=== PATIENT | female | born 1940 | race Caucasian/White ===

== ENCOUNTER 2023-07-08 11:12 | Inpatient (IN) ==
[2023-07-08] MEDS: OPTIRAY 320 125ml IV ONE (11:19)
--- NOTE | 2023-07-08 11:33 | Emergency Department Note ---
Impression & Plan Stroke-like symptoms ED Provider Note ED Provider Note NAME: NEGRITA GEE AGE:82 SEX: Female : 1940 ARRIVES VIA: EMS INFORMANT: Patient ED PROVIDER(s): Elisha Joseph DO CHIEF COMPLAINT: Right leg weakness HPI: This is an 82-year-old female brought in by EMS due to concern for sudden onset of right leg weakness. Patient made a stroke alert prehospital and taken urgently for CT imaging. Upon patient's arrival into the room, she stated she began developing lightheadedness/dizziness at 945 this morning about the time her daughter arrived. She states she then began to feel a sense of numbness in her right lower extremity and then realized that the leg was weak when she tried to stand up. She states she had to physically move the leg and felt she was falling to the right when she tried to stand on it. No prior similar episodes. No recent falls or trauma. Patient denies any difficulty speaking, change in vision, or headaches. She states the leg does feel improved at this time although not totally resolved. She states she is able to move it somewhat at this time. She states the right lower extremity feels heavy as if there is a weight on it. PAST MEDICAL HISTORY:See Below PAST SURGICAL HISTORY:See Below FAMILY HISTORY:See Below SOCIAL HISTORY:See Below HOME MEDICATIONS:See Below ALLERGIES:See Below VITALS:See Below PHYSICAL EXAMINATION: GENERAL: alert, well appearing, well nourished, no distress, non-toxic EYE EXAM: normal conjunctiva, PERRL and EOM's grossly intact OROPHARYNX: no exudate, no erythema, lips, buccal mucosa, and tongue normal and mucous membranes are moist NECK: supple, no nuchal rigidity, no adenopathy, non-tender LUNGS: Clear to auscultation. Normal chest wall mechanics, no w/r/r HEART: no murmurs, S1 normal and S2 normal ABDOMEN: abdomen soft, non-tender, normo-active bowel sounds, no masses, no rebound or guarding. BACK: Back is symmetrical on inspection and there is no deformity, no midline tenderness, no CVA tenderness. SKIN: no rashes, petechiae, orbruising UPPER EXTREMITIES: upper extremities are grossly normal. FROM, nml pulses b/l. LOWER EXTREMITIES: No pitting edema. FROM, nml pulses b/l. Mild right lower extremity weakness compared to the left, sensation intact bilaterally. NEURO EXAM: Normal sensorium, cranial nerves II-XII grossly intact, normal speech, no facial droop,nogross weakness of arms, no gross weakness of legs. Gross sensation intact. No ataxia. Vital Signs: reviewed and remarkable Differential Diagnosis: Differential Diagnosis includes but is not limited to ischemic Stroke, hemorrhagic stroke, bells palsy, mass, neoplasm, migraine headache, seizure, subarachnoid hemorrhage, TIA, and transient global amnesia. MEDICAL DECISION MAKING: This is an 82-year-old female who presents emergency department due to concern for strokelike symptoms. Patient made a stroke alert prehospital and sent emergently for CT imaging of. When she returned to room B1 a bedside evaluation was performed and I then contacted the on-call stroke neurologist. Patient's symptoms were already improving at that time and initially calculated an NIHSS of 2. Patient was noted by mildly hypertensive, labs drawn and sent, IV established, EKG performed at bedside interpreted by me and patient monitored on telemetry. CTs were negative for acute intracranial pathology. Patient evaluated via telestroke cart by Dr. Shook of [place] [facility]. I did discuss the events of this morning with the patient's daughter initially in the waiting room area and then brought her to the room at bedside. Neurology did recommend use of TNK after extensive bedside evaluation and conversation with the patient and daughter. This was discussed with the ED pharmacist, Za who helped in quick administration of TNK upon this decision being made. Patient blood pressure did improve after 1 dose of labetalol. Patient had no other new or evolving symptoms. Case discussed with the [facility] hospitalist team for additional evaluation and management. Consultation(s): 1140: Discussed with Dr. Shook, [place] stroke neurolog[facility]. 1226: Discussed with Dr. Shook again. Recommends giving TNK and admitting to medicine to the ICU. 1232: Discussed with Dr. Coleman, [place] hospitalist, for additional evaluation/mgmt. ER Treatment Provided: See below 1130: Discussed with family in waiting room area. Diagnostics Interpreted By Me: -ECG: Normal sinus at 92, normal axis, normal intervals, no acute ST/T wave changes -Cardiac Monitoring: An order was placed for continuous cardiac monitoring. The monitor shows a rate of 94 with normal sinus rhythm. -Laboratory studies: As stated above and show below. -Imaging studies: CT head: No obvious ICH per my interpretation Triage Nursing Note Reviewed Prior/Outside Records Reviewed Critical Care: Critical care of 39 min performed to assess and manage high likelihood of life- threatening CVA with administration of TNK, involving labs and imaging performed with assessment to evaluate strokelike symptoms with frequent reassessment. This time includes bedside time, treatment discussions with patient/family/consultants, documentation time and excludes procedure time. 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 Surgical History S/P shoulder surgery S/P cataract surgery S/P skin neoplasm resection S/P cholecystectomy Family History Mother Brain tumor Father Stomach ulcer Brother Brain cancer Grandmother Hearing loss Aunt Hearing loss Denies family history of Ovarian cancer Prostate cancer Heart disease Myocardial infarction Breast cancer Colorectal cancer Cancer Hypertension Stroke Asthma Social History (Updated 02/26/23 @ 09:58 by Iris Suarez LPN) Smoking Status: Former smoker Tobacco Type: Cigarettes Age Started Using Tobacco: 20; Age Quit Using Tobacco: 42; packs per day: 3; Second Hand Exposure: No; Do You Dip or Chew Tobacco: No; Tobacco Cessation Education Requested by Patient: No Hx Alcohol Use: No Hx Substance Use: No Preferred Language: Macanese Communication Ability: Effective Visual Impairment: No Limitations Hearing Ability: Use of Hearing Aid Commercial Litigation Associate Required: No Beliefs That Will Affect Care: Cultural marital status: / Current Living Situation: Alone current occupational status: retired How many Children do You have: 3 Other Information That Helps Us Care for You: No Feels Safe at Home: Yes Safety Concerns: Feels Safe At This Time Childhood Exposure to Second-Hand Smoke: No Diet: other Diet Comment: No salt caffeine: Yes during the past year weight has: remained stable Dental Care, Regularly: Yes Physical Activity Frequency: Daily Seatbelt Use: always Sunscreen Use: Yes Assistive Devices: Hearing Aid - Bilateral Allergies Allergies Allergy/AdvReac Type Severity Reaction Status Date / Time bee venom protein (honey bee) Allergy Verified 07/07/23 14:41 No Known Drug Allergies Allergy Verified 07/07/23 14:41 Home Meds Home Medications Medication Instructions Recorded Confirmed cyclosporine 0.05 % eye drops in a 1 drops ophthalmic (eye) Q12H 01/22/19 07/08/23 dropperette (Restasis) multivitamin 1 tab PO DAILY 01/22/19 07/08/23 turmeric root extract 500 mg 500 mg PO DAILY 01/22/19 07/08/23 capsule vitamin B complex (B Complex 1 1 tab PO DAILY 01/22/19 07/08/23 tablet) krill oil 500 mg capsule See Rx Instructions .Route .COMPLEX 03/02/19 07/08/23 vit C 250 mg-vit E 90 mg-zinc 40 1 tab PO BID 02/25/22 07/08/23 mg-copper 1 [id number] capsule (PreserVision AREDS-2) Previous Rx's Medication Instructions Recorded meclizine 25 mg tablet 25 mg PO DAILY PRN dizziness #10 01/07/22 tabs Results & Data (ED) Vital Signs Vital Signs - 24 hr 07/08/23 11:09 07/08/23 11:09 07/08/23 11:25 Temperature 36.9 C Temperature Source Oral Pulse Rate 90 Pulse Rate [Apical] 101 H Respiratory Rate 22 22 Respiratory Effort / Characteristics Non-Labored Respiratory Depth Normal Respiratory Pattern Regular Blood Pressure 182/96 H Blood Pressure [Right Arm] 193/102 H Blood Pressure Mean 124 Blood Pressure Mean [Right Arm] 132 Pulse Oximetry 97 97 98 Oxygen Delivery Method Room Air Room Air Room Air Sepsis Recent Fever Within 48 Hours No Sepsis New/Unexplained Change in Mental Status N/A Sepsis Action Taken by Nursing No Action Required 07/08/23 11:31 07/08/23 11:40 07/08/23 11:55 Temperature Temperature Source Pulse Rate 101 H Pulse Rate [Apical] 101 H 103 H Respiratory Rate 22 22 Respiratory Effort / Characteristics Respiratory Depth Respiratory Pattern Blood Pressure Blood Pressure [Right Arm] 193/102 H 199/119 H Blood Pressure Mean Blood Pressure Mean [Right Arm] 132 145 Pulse Oximetry 97 98 Oxygen Delivery Method Room Air Sepsis Recent Fever Within 48 Hours Sepsis New/Unexplained Change in Mental Status Sepsis Action Taken by Nursing 07/08/23 11:56 07/08/23 12:10 07/08/23 12:14 Temperature Temperature Source Pulse Rate 103 H 84 Pulse Rate [Apical] 84 Respiratory Rate 19 Respiratory Effort / Characteristics Respiratory Depth Respiratory Pattern Blood Pressure 199/119 H 181/96 H Blood Pressure [Right Arm] 181/96 H Blood Pressure Mean Blood Pressure Mean [Right Arm] 124 Pulse Oximetry 95 Oxygen Delivery Method Room Air Sepsis Recent Fever Within 48 Hours Sepsis New/Unexplained Change in Mental Status Sepsis Action Taken by Nursing 07/08/23 12:25 07/08/23 12:39 07/08/23 12:54 Temperature Temperature Source Pulse Rate Pulse Rate [Apical] 83 82 84 Respiratory Rate 18 22 20 Respiratory Effort / Characteristics Respiratory Depth Respiratory Pattern Blood Pressure Blood Pressure [Right Arm] 162/90 H 164/81 H 166/98 H Blood Pressure Mean Blood Pressure Mean [Right Arm] 114 108 120 Pulse Oximetry 93 97 95 Oxygen Delivery Method Room Air Room Air Room Air Sepsis Recent Fever Within 48 Hours Sepsis New/Unexplained Change in Mental Status Sepsis Action Taken by Nursing Laboratory Data 07/08/23 11:38 07/08/23 11:38 Lab Results 07/08/23 Range/Units 11:38 WBC 3.98 L (4.8-10.8) K/ul RBC 3.61 L (4.20-5.40) M/uL Hgb 11.9 L (12.0-16.0) g/dl Hct 35.2 L (37.0-47.0) % MCV 97.5 (80.0-100.0) fL MCH 33.0 (25.0-34.0) pg MCHC 33.8 (32.0-36.0) g/dL RDW Std Deviation 49.9 H (36.4-46.3) fL RDW Coeff of Jackson 13.7 (11.5-14.5) % Plt Count 163 (130-400) K/uL MPV 10.1 (9.4-12.4) fL Immature Gran % (Auto) 0.3 % Neut % (Auto) 65.9 % Lymph % (Auto) 20.6 % Harnett % (Auto) 10.1 % Eos % (Auto) 2.3 % Baso % (Auto) 0.8 % Neut # (Auto) 2.63 (1.40-6.50) K/uL Lymph # (Auto) 0.82 L (1.20-3.40) K/uL Harnett # (Auto) 0.40 (0.11-0.59) K/uL Eos # (Auto) 0.09 (0.00-0.50) K/uL Baso # (Auto) 0.03 (0.00-0.20) K/uL Immature Gran # (Auto) 0.01 (0.01-0.20) K/uL PT 11.1 (9.0-12.0) Seconds INR 1.0 (0.9-1.1) APTT 27 (21-31) Seconds PTT Ratio 1.0 Sodium 138 (136-145) mmol/L Potassium 4.0 (3.5-5.1) mmol/L Chloride 107 (98-107) mmol/L Carbon Dioxide 25 (21-32) mmol/L Anion Gap 6 (3-11) BUN 21 (6-23) mg/dl Creatinine 1.13 (0.6-1.2) mg/dl Est Cr Clr Drug Dosing 34.3 ml/min Est GFR ( Amer) 53.2 ml/min Est GFR (Non-Af Amer) 45.9 ml/min BUN/Creatinine Ratio 18.6 (10-20) Glucose 120 H (70-99(Fasting)) mg/dl Calcium 8.8 (8.6-10.3) mg/dl Magnesium 1.8 (1.7-2.4) mg/dl Total Bilirubin 0.4 (0.2-1.0) mg/dl AST 22 (13-39) U/L ALT 14 (7-52) U/L Alkaline Phosphatase 80 (34-104) U/L Troponin I High Sens 5.8 (0-14) pg/ml Total Protein 6.2 (6.0-8.3) gm/dl Albumin 3.7 (3.4-5.0) gm/dl Globulin 2.5 (2.5-4.0) gm/dl Albumin/Globulin Ratio 1.5 (0.9-2) Blood Type O Positive Antibody Screen NEGATIVE Administered Medications Sodium Chloride (Nss) 1,000 mls @ 125 mls/hr IV .Q8H ABDIEL Stop: 08/07/23 11:14 Last Admin: 07/08/23 11:50 Dose: 125 mls/hr Documented By: SHANIQUA Discontinued Medications Tenecteplase 16 mg/ Syringe 3.2 mls @ 38.4 mls/min IV NOW ONE; Protocol Stop: 07/08/23 12:44 Last Admin: 07/08/23 12:34 Dose: 38.4 mls/min Documented By: SHANIQUA Co-signed By: BRIAN Ioversol (Optiray 320 125ml) 119 ml IV ONCE ONE Stop: 07/08/23 11:20 Last Admin: 07/08/23 11:19 Dose: 119 ml Documented By: LUKE Labetalol HCl (Labetalol Hcl Iv 5 Mg/Ml 20ml) 5 mg IV NOW STA Stop: 07/08/23 11:48 Last Admin: 07/08/23 11:56 Dose: 5 mg Documented By: SHANIQUA Co-signed By: BRIAN Labetalol HCl (Labetalol Hcl Iv 5 Mg/Ml 20ml) 5 mg IV NOW STA Stop: 07/08/23 12:15 Last Admin: 07/08/23 13:27 Dose: Not Given Documented By: SHANIQUA Miscellaneous (Stat Iv/Im) 1 each N/A NOW STA Stop: 07/08/23 12:34 Last Admin: 07/08/23 15:18 Dose: Not Given Documented By: KEYANA Sodium Chloride (Sodium Chloride 0.9% 10ml Flush) 20 ml IV NOW STA Stop: 07/08/23 12:34 Last Admin: 07/08/23 12:45 Dose: 20 ml Documented By: SHANIQUA Imaging Data Radiologist's Impression: Head CT 07/08/23 11:08 CT OF THE HEAD WITHOUT CONTRAST CLINICAL HISTORY: neuro deficit, acute stroke suspected. Right leg weakness COMPARISON STUDY: MRI of the brain March 02, 2019. CT DOSE: 1082.51 mGy.cm TECHNIQUE: Helical axial images of the head were obtained without IV contrast. Automated exposure control was utilized for the study. A dose lowering technique was utilized adhering to the principles of ALARA. FINDINGS: This exam is compromised by streak artifact from a left cochlear implant. No acute intracranial hemorrhage, midline shift or mass effect is present. Ventricular system is stable. Basal cisterns are patent. White matter hypodensities are present. These were shown on prior MRI. There are no findings to suggest acute dural sinus thrombosis or acute territorial infarct. There is no calvarial fracture. Postprocedural findings within the left temporal bone are noted. IMPRESSION: 1. No acute intracranial findings. 2. Exam compromised by streak artifact from the left cochlear implant. 3. Extensive white matter hypodensities, as shown on previous MRI. ACT 112: Negative or not required by law. Electronically signed by: Twin Em M.D. 07/08/2023 11:32 AM Head CTA 07/08/23 11:08 CT angio head w con CLINICAL HISTORY: neuro deficit, acute stroke suspected TECHNIQUE: CT angiography of the head was performed following intravenous administration of iodinated contrast. Coronal and sagittal MIPS were obtained from the axial data set and were submitted for review. Automated dose lowering techniques and/or adjustment according to patient size were utilized for this examination. All measurements were calculated based on NASCET criteria. Comparison: None available at the time of this dictation. FINDINGS: CTA Head: The anterior and posterior cerebral circulations are patent. No hemodynamically significant stenosis, aneurysm, dissection, or arteriovenous malformation is shown. IMPRESSION: No occlusion, hemodynamically significant stenosis, aneurysm, dissection, or arteriovenous malformation in the major intracranial arteries. Assessment of stenosis of the internal carotid arteries is based on NASCET criteria. ACT 112: Negative or not required by law. Electronically signed by: Hussein Toney M.D. 07/08/2023 11:51 AM Neck CTA 07/08/23 11:08 CT ANGIOGRAPHY OF THE NECK WITH CONTRAST CLINICAL HISTORY: neuro deficit, acute stroke suspected COMPARISON STUDY: No previous studies for comparison. Technique: CT angiography of the carotid and vertebral arteries was obtained using Optiray and 3D reconstruction on an independent workstation. NASCET criteria was utilized. Automated exposure control was utilized for the study. A dose lowering technique was utilized adhering to the principles of ALARA. Findings: Visualized portions of the lung apices are unremarkable. No cervical spine fractures are present. Multilevel degenerative changes within the cervical spine are present. There is moderate plaque within the proximal left internal carotid artery and mild plaque within the right internal carotid artery without significant stenosis. The vertebral arteries are patent. No aneurysm or dissection within the neck is present. 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 No aneurysm or dissection within the neck. ACT 112: Negative or not required by law. Electronically signed by: Twin Em M.D. 07/08/2023 11:41 AM Discharge Plan Visit Data Chief Complaint: Stroke Alert ED Provider: Elisha Joseph Discharge Problem: Stroke-like symptoms Patient Disposition: Admitted As Inpatient Discharge Instructions Interventions: ED Discharge Assessment Last Done: 07/08/23 14:46
--- NOTE | 2023-07-08 11:33 | CT Scan Report ---
CT OF THE HEAD WITHOUT CONTRAST CLINICAL HISTORY: neuro deficit, acute stroke suspected. Right leg weakness COMPARISON STUDY: MRI of the brain March 02, 2019. CT DOSE: 1082.51 mGy.cm TECHNIQUE: Helical axial images of the head were obtained without IV contrast. Automated exposure con trol was utilized for the study. A dose lowering technique was utilized adhering to the principles o f ALARA. FINDINGS: This exam is compromised by streak artifact from a left cochlear implant. No acute intracra nial hemorrhage, midline shift or mass effect is present. Ventricular system is stable. Basal cistern s are patent. White matter hypodensities are present. These were shown on prior MRI. There are no fin dings to suggest acute dural sinus thrombosis or acute territorial infarct. There is no calvarial fra cture. Postprocedural findings within the left temporal bone are noted. IMPRESSION: 1. No acute intracranial findings. 2. Exam compromised by streak artifact from the left cochlear implant. 3. Extensive white matter hypodensities, as shown on previous MRI. ACT 112: Negative or not required by law. Electronically signed by: Twin Em M.D. 07/08/2023 11:32 AM
--- NOTE | 2023-07-08 11:43 | CT Scan Report ---
CT ANGIOGRAPHY OF THE NECK WITH CONTRAST CLINICAL HISTORY: neuro deficit, acute stroke suspected COMPARISON STUDY: No previous studies for comparison. Technique: CT angiography of the carotid and vertebral arteries was obtained using Optiray and 3D rec onstruction on an independent workstation. NASCET criteria was utilized. Automated exposure control was utilized for the study. A dose lowering technique was utilized adhering to the principles of ALA RA. Findings: Visualized portions of the lung apices are unremarkable. No cervical spine fractures are pr esent. Multilevel degenerative changes within the cervical spine are present. There is moderate plaqu e within the proximal left internal carotid artery and mild plaque within the right internal carotid artery without significant stenosis. The vertebral arteries are patent. No aneurysm or dissection wit hin the neck is present. IMPRESSION: Atherosclerotic plaque within the proximal bilateral internal carotid arteries without st enosis. No aneurysm or dissection within the neck. ACT 112: Negative or not required by law. Electronically signed by: Twin Em M.D. 07/08/2023 11:41 AM
[2023-07-08] MEDS: SODIUM CHLORIDE 0.9% 1,000 ML IV SCH (11:50)
--- NOTE | 2023-07-08 11:53 | CT Scan Report ---
CT angio head w con CLINICAL HISTORY: neuro deficit, acute stroke suspected TECHNIQUE: CT angiography of the head was performed following intravenous administration of iodinated contrast. Coronal and sagittal MIPS were obtained from the axial data set and were submitted for rev iew. Automated dose lowering techniques and/or adjustment according to patient size were utilized fo r this examination. All measurements were calculated based on NASCET criteria. Comparison: None available at the time of this dictation. FINDINGS: CTA Head: The anterior and posterior cerebral circulations are patent. No hemodynamically significan t stenosis, aneurysm, dissection, or arteriovenous malformation is shown. IMPRESSION: No occlusion, hemodynamically significant stenosis, aneurysm, dissection, or arteriovenous malformati on in the major intracranial arteries. Assessment of stenosis of the internal carotid arteries is based on NASCET criteria. ACT 112: Negative or not required by law. Electronically signed by: Hussein Toney M.D. 07/08/2023 11:51 AM
[2023-07-08] MEDS: LABETALOL HCL IV 5 MG/ML 20ML IV STA ×2 (11:56→13:27)
[2023-07-08 11:59] LABS: Basophils # (auto) 0.03 K/uL (0.00-0.20); Basophils % (auto) 0.8 %; Eosinophils # (auto) 0.09 K/uL (0.00-0.50); Eosinophils % (auto) 2.3 %; Hematocrit (blood only) 35.2 % (37.0-47.0); Hemoglobin 11.9 g/dl (12.0-16.0); Immature Granulocytes # (auto) 0.01 K/uL (0.01-0.20); Immature Granulocytes % (auto) 0.3 %; Lymphocytes # (auto) 0.82 K/uL (1.20-3.40); Lymphocytes % (auto) 20.6 %; Mean Corpuscular Hgb Conc 33.8 g/dL (32.0-36.0); Mean Corpuscular Volume 97.5 fL (80.0-100.0); Mean Platelet Volume 10.1 fL (9.4-12.4); Monocytes % (auto) 10.1 %; Neutrophils # (auto) 2.63 K/uL (1.40-6.50); Neutrophils % (auto) 65.9 %; Platelet Count 163 K/uL (130-400); RDW Coefficient of Variation 13.7 % (11.5-14.5); RDW Standard Deviation 49.9 fL (36.4-46.3); Red Blood Count 3.61 M/uL (4.20-5.40); White Blood Count 3.98 K/ul (4.8-10.8)
[2023-07-08 12:07] LABS: Partial Thromboplastin Time 27 Seconds (21-31); Prothrombin Time 11.1 Seconds (9.0-12.0)
[2023-07-08 12:18] LABS: Albumin Globulin Ratio 1.5 (0.9-2); Albumin Level 3.7 gm/dl (3.4-5.0); BUN Creatinine Ratio 18.6 (10-20); Bilirubin,Total 0.4 mg/dl (0.2-1.0); Calcium 8.8 mg/dl (8.6-10.3); Creatinine Clr Calc Pharmacy 34.3 ml/min; Est GFR (African American) 53.2 ml/min; Est GFR (Non-African American) 45.9 ml/min; Globulin 2.5 gm/dl (2.5-4.0); Magnesium 1.8 mg/dl (1.7-2.4); Total Protein 6.2 gm/dl (6.0-8.3)
[2023-07-08 12:23] LABS: Troponin I High Sensitivity 5.8 pg/ml (0-14)
[2023-07-08] MEDS ORDERED: PHARMACIST DISCHARGE MED REC CONSULT PRN ×2 (12:25→14:30)
[2023-07-08] MEDS: TENECTEPLASE 16 MG in SYRINGE 0 ML IV ONE (12:34)
[2023-07-08] MEDS: SODIUM CHLORIDE 0.9% 10ML FLUSH IV STA (12:45)
[2023-07-08] MEDS ORDERED: No Aspirin within 24hrs of THROMBOLYTIC-Stroke PO SCH (12:45)
--- NOTE | 2023-07-08 13:01 | History & Physical Report ---
Date of Service July 08, 2023 Assessment & Plan (1) CVA (cerebral vascular accident): Plan: Suspected CVA, sudden onset right lower extremity weakness/paresthesia. Onset of right lower extremity acute weakness and numbness 945hrs 07/08/23. s/p TNKase at 1234. NIHSS 2/3 in ER. - CTA-H/N, CT-H naf on admit Received labetalol 5 mg x 2 for hypertension pre-TNKase with good control Symptoms nearly completely resolved on assessment post TNKase. Message left with Dr. Everton Black in [facility] to determine if her cochlear implant placed November 2022 is MRI compatible. MRI deferred pending clarification 24-hour CT ordered Post TNKase protocol,limb restriction, no aspirin x 24 hours - labetelol 10mg IV Q15M on-call for SBP greater than 180 or diastolic blood pressure greater than 105. Max dose 300mg, hold for bradycardia Admitted to ICU Echo with bubble study is pending. No chest pain chest pressure or palpitations preceding symptoms, no history of A-fib. 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 Everton Black in (3) Multiple sclerosis: Plan: Remote history of this with stable MRI findings last MRI several years ago. Patient denies recurrent focal neurodeficits and is no longer on any medications for this DDx for acute right lower extremity weakness does include MS flare, although abrupt onset with near complete resolution following TNKase aspconsistent with CVA +/- MRI pending cochlear implant compatibility (4) Hypertension: Plan: Post TNKase protocol - ANALYTICAL TECH pt reports blood pressure is normally well-controlled 120s at home with salt restriction Up to 199 systolic, improved to 162/90 post labetalol in ER (5) Prediabetes: Plan: Diet controlled, ICU hypoglycemia protocol Plan DVT prophylaxis: SCDs, pharmacal prophylaxis contraindicated Disposition: ICU Diet: Advance to heart healthy if passes swallow study CODE STATUS: DNR/DNI discussed with patient and daughter at bedside History of Present Illness Primary Care Provider: Darryl Hernandez DO Rain is an 82-year-old female with a 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 She was evaluated as a stroke alert and received TNKase at 1234. Prior to TNKase 2 doses of labetalol were given for blood pressure peaking at 199/119. Rain seen at the bedside. She reports that she is not had any history of strokes or TIAs. No history of heart disease. No a flutter. No chest pain or chest pressure. She was in her usual state of health yesterday and this morning with no recent cold-like symptoms, flulike symptoms or acute illness when she suddenly developed right lower extremity weakness and numbness. She attempted to bear weight and realize she could not stand on that leg due to weakness and felt her balance was listing off to the right side. She presented to the ER by EMS and reports she thinks her symptoms were starting to improve a little bit but was still very weak. On initial assessment she had right lower extremity drift and decreased sensation compared to the left. right arm was relatively normal and she did not have any expressive or receptive aphasia or dysarthria. She thinks that she had some preceding lightheadedness and dizziness just before her weakness. No syncope or presyncope. She received TNKase at 1234, seen at the bedside approximately 1245. At time of assessment she feels her right leg continues to be qualitatively numb compared to the left but she can sense soft touch to the right lower extremity. Patient moves in hip flexes and is surprised as she notes her right lower extremity strength is suddenly back to. She denies acute vision change, although macular degeneration with chronic acuity loss, and denies headache. Medical History: Reviewed Medications: Reviewed Surgical History: Reviewed Family history: Reviewed Allergies: Reviewed Social History: Former tobacco use in remission since 1982, former alcohol use in remission since 1969 Code Status: DNR/DNI, discussed with patient and daughter who is at bedside at time of visit Allergies Allergy/AdvReac Type Severity Reaction Status Date / Time bee venom protein (honey bee) Allergy Verified 07/07/23 14:41 No Known Drug Allergies Allergy Verified 07/07/23 14:41 Home Medications Medication Instructions Recorded Confirmed Type cyclosporine 0.05 % eye drops in a 1 drops ophthalmic (eye) Q12H 01/22/19 07/08/23 History dropperette (Restasis) multivitamin 1 tab PO DAILY 01/22/19 07/08/23 History turmeric root extract 500 mg 500 mg PO DAILY 01/22/19 07/08/23 History capsule vitamin B complex (B Complex 1 1 tab PO DAILY 01/22/19 07/08/23 History tablet) krill oil 500 mg capsule See Rx Instructions .Route .COMPLEX 03/02/19 07/08/23 History meclizine 25 mg tablet 25 mg PO DAILY PRN dizziness #10 01/07/22 07/08/23 Rx tabs vit C 250 mg-vit E 90 mg-zinc 40 1 tab PO BID 02/25/22 07/08/23 History mg-copper 1 [id number] capsule (PreserVision AREDS-2) Past Med/Surg History Medical History (Updated 07/08/23 @ 13:09 by Deyvi Coleman MD) Cochlear implant in place Shingles Sensorineural hearing loss (SNHL) of left ear with restricted hearing of right ear Menieres disease Surgical History S/P shoulder surgery S/P cataract surgery S/P skin neoplasm resection S/P cholecystectomy Family History Mother Brain tumor Father Stomach ulcer Brother Brain cancer Grandmother Hearing loss Aunt Hearing loss Denies family history of Ovarian cancer Prostate cancer Heart disease Myocardial infarction Breast cancer Colorectal cancer Cancer Hypertension Stroke Asthma Social History (Updated 02/26/23 @ 09:58 by Iris Suarez LPN) Smoking Status: Former smoker Tobacco Type: Cigarettes Age Started Using Tobacco: 20; Age Quit Using Tobacco: 42; packs per day: 3; Second Hand Exposure: No; Do You Dip or Chew Tobacco: No; Hx Alcohol Use: No Hx Substance Use: No Preferred Language: French Communication Ability: Effective Visual Impairment: No Limitations Hearing Ability: Use of Hearing Aid Running Rigger Required: No Beliefs That Will Affect Care: Cultural marital status: / Current Living Situation: Alone current occupational status: retired How many Children do You have: 3 Feels Safe at Home: Yes Childhood Exposure to Second-Hand Smoke: No Diet: other Diet Comment: No salt caffeine: Yes during the past year weight has: remained stable Dental Care, Regularly: Yes Physical Activity Frequency: Daily Seatbelt Use: always Sunscreen Use: Yes Assistive Devices: Hearing Aid - Bilateral Physical Exam Physical Exam: General: A&Ox3. NAD. Cooperative. HEENT: Atraumatic, normocephalic. L cochlear implant. Pulm: CTAB A&P. -wheezes, -rales, -rhonchi. Symmetrical chest rise. No increased work of breathing. No respiratory distress. Cardiac: RRR, -mrg. Radial pulses intact and symmetrical. Abdominal: Nontender, nondistended, soft CRANIAL NERVES: II: Pupils equal and reactive, no relative afferent pupillary defect, no VF cuts III, IV, : EOM intact, no gaze preference or deviation, no nystagmus. V: normal sensation in V1, V2, and V3 segments bilaterally VII: no asymmetry, no nasolabial fold flattening VIII:hearing intact w/ L cochlear implant in place, diminished hearing in R ear IX, X: normal palatal elevation, no uvular deviation XI: 5/5 head turn and 5/5 shoulder shrug bilaterally XII: midline tongue protrusion MOTOR: RUE: 5/5 Shoulder flexion, abduction, adducti on 5/5 Elbow flexion/extension, wrist flexi on/extension 5/5 manager sales training strength, finger flexion/extens ion, interosseus LUE: 5/5 Shoulder flexion, abduction, adducti on 5/5 Elbow flexion/extension, wrist flexi on/extension 5/5 manager sales training strength, finger flexion/extens ion, interosseus RLE: 5/5 to hip flexion, knee flexion/extensi on, ankle dorsiflexion/plantarflexion. Right hip flexion is with 5/5 strength, although some trace asymmetry and weakness persist compared to the left qualitatively LLE: 5/5 to hip flexion, knee flexion/extensi on, ankle dorsiflexion/plantarflexion REFLEXES: no clonus SENSORY: Sensation intact to soft touch in hands bilaterally. Sensation is intact to soft touch in the lower extremities bilaterally, but patient endorses paresthesia and diminished sensation qualitatively of the right lower extremity up to approximately the knee COORD: no tremor, no dysmetria Results & Data Results & Data Vital Signs (Past 12 Hours) Vital Signs Temp Pulse Pulse Resp BP BP Pulse Ox 07/08/23 12:25 83 18 162/90 H 93 07/08/23 12:14 84 181/96 H 07/08/23 12:10 84 19 181/96 H 95 07/08/23 11:56 103 H 199/119 H 07/08/23 11:55 103 H 22 199/119 H 98 07/08/23 11:40 101 H 22 193/102 H 97 07/08/23 11:31 101 H 07/08/23 11:25 101 H 22 193/102 H 98 07/08/23 11:09 97 07/08/23 11:09 36.9 C 90 22 182/96 H 97 O2 Del Method 07/08/23 12:25 Room Air 07/08/23 12:14 07/08/23 12:10 Room Air 07/08/23 11:56 07/08/23 11:55 07/08/23 11:40 Room Air 07/08/23 11:31 07/08/23 11:25 Room Air 07/08/23 11:09 Room Air 07/08/23 11:09 Room Air PG Care Time/CCT Total # of Minutes Spent Total Time Spent with Patient: Total time spent is greater than 50% in coordination of care (as documented) at patient's floor/unit and/or counseling patient: Coding Level of Care Code 57363 INT INP/OBS CARE 3/75MIN Diagnoses CVA (cerebral vascular accident) I63.9 Menieres disease H81.09 Multiple sclerosis G35 Hypertension I10 Prediabetes R73.03
[2023-07-08 13:51] LABS: Appearance Urine Cloudy (Clear); Bacteria Urine Automated Negative (Negative); Bilirubin Urine Negative (Negative); Blood Urine Negative (Negative); Cast Urine Automated 0 /lpf (0-5); Color Urine Yellow; Epithelial Cell Urine Auto 20-30 /lpf (0-5); Glucose Urine UA Negative (Negative); Ketones Urine Negative (Negative); Leukocyte Esterase Urine 2+ (Negative); Nitrite Urine Negative (Negative); Protein Urine Negative (Negative); Specific Gravity Urine 1.034 (1.000-1.030); Urobilinogen Urine Negative (Negative)
[2023-07-08 14:23] LABS: RBC Urine Automated 0-4 /hpf (0-4); Renal Epithelial Cells Urine 0-5 /lpf (0-5)
--- NOTE | 2023-07-08 14:26 | Critical Care Consultation ---
Date of Consultation July 08, 2023 Assessment & Plan (1) CVA (cerebral vascular accident): Continue frequent neurovascular checks maintaining blood pressure at goal of under 180 systolic and diastolic less than 105. Echo with bubble study ordered. MRI brain will need to be completed. Patient will need PT and OT evaluations. Noncontrast CT head in 24 hours to evaluate for evidence of bleed. Neurology consult placed by hospitalist service. Avoid fever, maintain euglycemia and keep head of the bed elevated. History of Present Illness Reason for Consultation: CVA s/p TNKase History of Present Illness 82-year-old female with history of sensorineural hearing loss, hypertension and multiple sclerosis who presented to the ER with strokelike symptoms. Patient was complaining of light headedness and dizziness that started around 945 this morning she also noted numbness and tingling in her right lower extremity. NIH stroke scale was 3. Patient was administered TNKase at a dose of 60 mg at roughly 12:34 PM. Symptoms largely resolved. She had a CTA of her neck which revealed atherosclerotic plaque within the proximal bilateral internal carotid arteries without stenosis. Head CTA revealed no occlusion. Noncontrast CT head revealed extensive white matter hypodensities no acute intracranial findings. Allergies Allergy/AdvReac Type Severity Reaction Status Date / Time bee venom protein (honey bee) Allergy Verified 07/07/23 14:41 No Known Drug Allergies Allergy Verified 07/07/23 14:41 Home Medications Medication Instructions Recorded Confirmed Type cyclosporine 0.05 % eye drops in a 1 drops ophthalmic (eye) Q12H 01/22/19 07/08/23 History dropperette (Restasis) multivitamin 1 tab PO DAILY 01/22/19 07/08/23 History turmeric root extract 500 mg 500 mg PO DAILY 01/22/19 07/08/23 History capsule vitamin B complex (B Complex 1 1 tab PO DAILY 01/22/19 07/08/23 History tablet) krill oil 500 mg capsule See Rx Instructions .Route .COMPLEX 03/02/19 07/08/23 History meclizine 25 mg tablet 25 mg PO DAILY PRN dizziness #10 01/07/22 07/08/23 Rx tabs vit C 250 mg-vit E 90 mg-zinc 40 1 tab PO BID 02/25/22 07/08/23 History mg-copper 1 [id number] capsule (PreserVision AREDS-2) Patient History Medical History (Updated 07/08/23 @ 14:24 by Malvin Mckinney MD) Cochlear implant in place Shingles Sensorineural hearing loss (SNHL) of left ear with restricted hearing of right ear Menieres disease Surgical History S/P shoulder surgery S/P cataract surgery S/P skin neoplasm resection S/P cholecystectomy Family History Mother Brain tumor Father Stomach ulcer Brother Brain cancer Grandmother Hearing loss Aunt Hearing loss Denies family history of Ovarian cancer Prostate cancer Heart disease Myocardial infarction Breast cancer Colorectal cancer Cancer Hypertension Stroke Asthma Social History (Updated 02/26/23 @ 09:58 by Iris Suarez LPN) Smoking Status: Former smoker Tobacco Type: Cigarettes Age Started Using Tobacco: 20; Age Quit Using Tobacco: 42; packs per day: 3; Second Hand Exposure: No; Do You Dip or Chew Tobacco: No; Hx Alcohol Use: No Hx Substance Use: No Preferred Language: [place]ese Communication Ability: Effective Visual Impairment: No Limitations Hearing Ability: Use of Hearing Aid 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 Beliefs That Will Affect Care: Cultural marital status: / Current Living Situation: Alone current occupational status: retired How many Children do You have: 3 Feels Safe at Home: Yes Childhood Exposure to Second-Hand Smoke: No Diet: other Diet Comment: No salt caffeine: Yes during the past year weight has: remained stable Dental Care, Regularly: Yes Physical Activity Frequency: Daily Seatbelt Use: always Sunscreen Use: Yes Assistive Devices: Hearing Aid - Bilateral Review of Systems Review of Systems: All systems reviewed & are unremarkable except as noted in HPI & below Physical Exam Physical Exam: Constitutional: Patient appears to be of their stated age. Patient is in no apparent distress. Patient is well-developed. Eyes: Pupils are equal round and reactive to light. Conjunctivae are normal. Anicteric sclera. Ears nose, mouth and throat: Mallampati class 2. Normal posterior oropharynx. Uvula is midline. Left cochlear implant. Neck: Trachea is midline. Visual inspection is normal. Respiratory: Clear to auscultation bilaterally. No use of accessory muscles. No significant clubbing noted. Cardiovascular: Regular rate and rhythm. No murmurs. No edema. Gastrointestinal: Normal bowel sounds, soft, nontender and nondistended. No hepatosplenomegaly noted. Musculoskeletal: No cyanosis. Patient is able to move all extremities. Strength is 5 out of 5 in the upper and lower extremities. Skin: No rashes, warm dry and intact. Neurologic: No obvious focal neurological deficits seen. Psychiatric: Alert and oriented x3 with a euthymic affect. Results & Data Results & Data Vital Signs (Past 12 Hours) Vital Signs Temp Pulse Pulse Resp BP BP Pulse Ox 07/08/23 13:54 72 18 150/85 H 96 07/08/23 13:40 73 18 142/78 H 98 07/08/23 13:25 74 18 146/85 H 96 07/08/23 13:10 76 18 179/85 H 96 07/08/23 12:54 84 20 166/98 H 95 07/08/23 12:39 82 22 164/81 H 97 07/08/23 12:25 83 18 162/90 H 93 07/08/23 12:14 84 181/96 H 07/08/23 12:10 84 19 181/96 H 95 07/08/23 11:56 103 H 199/119 H 07/08/23 11:55 103 H 22 199/119 H 98 07/08/23 11:40 101 H 22 193/102 H 97 07/08/23 11:31 101 H 07/08/23 11:25 101 H 22 193/102 H 98 07/08/23 11:09 97 07/08/23 11:09 36.9 C 90 22 182/96 H 97 O2 Del Method 07/08/23 13:54 Room Air 07/08/23 13:40 Room Air 07/08/23 13:25 Room Air 07/08/23 13:10 Room Air 07/08/23 12:54 Room Air 07/08/23 12:39 Room Air 07/08/23 12:25 Room Air 07/08/23 12:14 07/08/23 12:10 Room Air 07/08/23 11:56 07/08/23 11:55 07/08/23 11:40 Room Air 07/08/23 11:31 07/08/23 11:25 Room Air 07/08/23 11:09 Room Air 07/08/23 11:09 Room Air Coding Level of Care Code 80778 IN/OBS CONSULT LVL 2,35M Diagnoses Cerebrovascular accident (CVA), unspecified mechanism I63.9 CVA mechanism: unspecified (1) CVA (cerebral vascular accident) CVA mechanism: unspecified Qualified Code(s): I63.9 - Cerebral infarction, unspecified
[2023-07-08] MEDS: STAT IV/IM STA (15:18)
[2023-07-08] MEDS: LABETALOL HCL IV 5 MG/ML 20ML IV PRN (15:52)
[2023-07-08] MEDS: ICU Protocol for HYPERglycemia SCH ×2 (16:31)
[2023-07-09 05:25] LABS: Basophils # (auto) 0.04 K/uL (0.00-0.20); Basophils % (auto) 0.9 %; Eosinophils # (auto) 0.22 K/uL (0.00-0.50); Eosinophils % (auto) 5.1 %; Hematocrit (blood only) 36.6 % (37.0-47.0); Hemoglobin 12.2 g/dl (12.0-16.0); Immature Granulocytes # (auto) 0.01 K/uL (0.01-0.20); Immature Granulocytes % (auto) 0.2 %; Lymphocytes % (auto) 25.5 %; Mean Corpuscular Hemoglobin 32.5 pg (25.0-34.0); Mean Corpuscular Hgb Conc 33.3 g/dL (32.0-36.0); Mean Corpuscular Volume 97.6 fL (80.0-100.0); Mean Platelet Volume 9.9 fL (9.4-12.4); Monocytes # (auto) 0.47 K/uL (0.11-0.59); Monocytes % (auto) 10.9 %; Neutrophils # (auto) 2.48 K/uL (1.40-6.50); Neutrophils % (auto) 57.4 %; Platelet Count 172 K/uL (130-400); RDW Coefficient of Variation 13.9 % (11.5-14.5); RDW Standard Deviation 50.5 fL (36.4-46.3); Red Blood Count 3.75 M/uL (4.20-5.40); White Blood Count 4.32 K/ul (4.8-10.8)
[2023-07-09 05:35] LABS: Albumin Globulin Ratio 1.5 (0.9-2); Albumin Level 3.7 gm/dl (3.4-5.0); BUN Creatinine Ratio 14.6 (10-20); Bilirubin,Total 0.6 mg/dl (0.2-1.0); Calcium 8.7 mg/dl (8.6-10.3); Chol HDL Ratio 2.7 (0-5); Creatinine Clr Calc Pharmacy 43.5 ml/min; Est GFR (African American) 70.9 ml/min; Est GFR (Non-African American) 61.2 ml/min; Globulin 2.5 gm/dl (2.5-4.0); Potassium 3.7 mmol/L (3.5-5.1); Total Protein 6.2 gm/dl (6.0-8.3)
[2023-07-09] MEDS: POTASSIUM CHLORIDE CRTAB 20 MEQ TABCR PO STA (06:26)
[2023-07-09] MEDS: MAGNESIUM SULFATE / D5W 1 GM/100 ML BAG IV SCH (06:26)
[2023-07-09 07:26] LABS: Estimated Average Glucose 117 mg/dl; Hemoglobin A1C 5.7 % (4.5-5.6)
[2023-07-09] MEDS: ATORVASTATIN 40 MG TAB PO SCH (07:54)
--- NOTE | 2023-07-09 09:08 | Hospitalist Progress Note ---
Date of Service July 09, 2023 Assessment & Plan (1) CVA (cerebral vascular accident): Plan: Suspected CVA, sudden onset right lower extremity weakness/paresthesia. Onset of right lower extremity acute weakness and numbness 945hrs 07/08/23. s/p TNKase at 1234. NIHSS 2/3 in ER. Symptoms nearly completely resolved on assessment post TNKase. - CTA-H/N, CT-H naf on admit Received labetalol 5 mg x 2 for hypertension pre-TNKase with good control Message left with Dr. Everton Black in [facility] to determine if her cochlear implant placed November 2022 is MRI compatible. MRI deferred pending clarification 24-hour CT ordered Post TNKase protocol,limb restriction, no aspirin x 24 hours - labetelol 10mg IV Q15M on-call for SBP greater than 180 or diastolic blood pressure greater than 105. Max dose 300mg, hold for bradycardia Echo with bubble study is pending. 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 Everton Black in [place] [phone] (3) Multiple sclerosis: Plan: Remote history of this with stable MRI findings last MRI several years ago. 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 Entering day 2 protocol order set after thrombolytic therapy. Awaiting PT OT and speech Repeat head CT done around midday will await results and if negative downgrade from ICU Physical Exam Physical Exam: Awake and alert she is hard of hearing but can understand if you are speaking well looking at her Card exam is regular lungs are clear No defined significant muscular deficit on neurological testing Results & Data Results & Data Vital Signs (Past 12 Hours) Vital Signs Temp Pulse Pulse Resp BP Pulse Ox O2 Del Method 07/09/23 08:25 98.4 F 70 16 141/71 H 94 Room Air 07/09/23 08:03 Room Air 07/09/23 07:35 97.9 F 69 16 149/72 H 95 Room Air 07/09/23 07:24 66 07/09/23 06:35 98.2 F 66 16 159/74 H 95 Room Air 07/09/23 05:35 98.2 F 61 16 153/82 H 93 Room Air 07/09/23 04:35 98.1 F 86 16 149/90 H 94 Room Air 07/09/23 03:35 98.2 F 79 16 164/86 H 94 Room Air 07/09/23 02:35 98.1 F 64 16 162/76 H 94 Room Air 07/09/23 01:35 98.4 F 64 16 162/72 H 94 Room Air 07/09/23 00:35 98.1 F 65 16 170/77 H 95 Room Air 07/08/23 23:35 98.2 F 65 16 168/81 H 96 Room Air 07/08/23 22:35 98.1 F 59 L 16 166/73 H 97 Room Air 07/08/23 21:35 98.2 F 75 16 176/99 H 95 Room Air Laboratory Results Reviewed CBC reviewed chemistry PG Care Time/CCT Total # of Minutes Spent Total Time Spent with Patient: Total time spent is greater than 50% in coordination of care (as documented) at patient's floor/unit and/or counseling patient: Coding Level of Care Code 26931 SUB INP/OBS CARE 2MIN Diagnoses Cerebrovascular accident (CVA), unspecified mechanism I63.9 CVA mechanism: unspecified Menieres disease H81.09 Multiple sclerosis G35 Hypertension I10 Prediabetes R73.03 (1) CVA (cerebral vascular accident) CVA mechanism: unspecified Qualified Code(s): I63.9 - Cerebral infarction, unspecified
--- NOTE | 2023-07-09 09:38 | Neurology Consultation ---
Date of Consultation July 09, 2023 Assessment & Plan (1) CVA (cerebral vascular accident): History of Present Illness Attending Physician: Blane Henson MD History of Present Illness 82 yo female with sudden rt side weakness. code stroke [facility] and [facility] and decided to give TNKase. pt this morning doing well. symptoms essentially resolved. no issues. unable to get mri brain due to cochlear implant as it is causing too much artifact. no new issues. pt well known to neurology clinic. 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 She was evaluated as a stroke alert and received TNKase at 1234. Prior to TNKase 2 doses of labetalol were given for blood pressure peaking at 199/119. Rain seen at the bedside. She reports that she is not had any history of strokes or TIAs. No history of heart disease. No a flutter. No chest pain or chest pressure. She was in her usual state of health yesterday and this morning with no recent cold-like symptoms, flulike symptoms or acute illness when she suddenly developed right lower extremity weakness and numbness. She attempted to bear weight and realize she could not stand on that leg due to weakness and felt her balance was listing off to the right side. She presented to the ER by EMS and reports she thinks her symptoms were starting to improve a little bit but was still very weak. On initial assessment she had right lower extremity drift and decreased sensation compared to the left. right arm was relatively normal and she did not have any expressive or receptive aphasia or dysarthria. She thinks that she had some preceding lightheadedness and dizziness just before her weakness. No syncope or presyncope. She received TNKase at 1234, seen at the bedside approximately 1245. At time of assessment she feels her right leg continues to be qualitatively numb compared to the left but she can sense soft touch to the right lower extremity. Patient moves in hip flexes and is surprised as she notes her right lower extremity strength is suddenly back to. She denies acute vision change, although macular degeneration with chronic acuity loss, and denies headache. Allergies Allergy/AdvReac Type Severity Reaction Status Date / Time bee venom protein (honey bee) Allergy Verified 07/07/23 14:41 No Known Drug Allergies Allergy Verified 07/07/23 14:41 Home Medications Medication Instructions Recorded Confirmed Type cyclosporine 0.05 % eye drops in a 1 drops ophthalmic (eye) Q12H 01/22/19 07/08/23 History dropperette (Restasis) multivitamin 1 tab PO DAILY 01/22/19 07/08/23 History turmeric root extract 500 mg 500 mg PO DAILY 01/22/19 07/08/23 History capsule vitamin B complex (B Complex 1 1 tab PO DAILY 01/22/19 07/08/23 History tablet) krill oil 500 mg capsule See Rx Instructions .Route .COMPLEX 03/02/19 07/08/23 History meclizine 25 mg tablet 25 mg PO DAILY PRN dizziness #10 01/07/22 07/08/23 Rx tabs vit C 250 mg-vit E 90 mg-zinc 40 1 tab PO BID 02/25/22 07/08/23 History mg-copper 1 [id number] capsule (PreserVision AREDS-2) Patient History Medical History (Updated 07/08/23 @ 15:32 by Elisha Joseph, ) Cochlear implant in place Shingles Sensorineural hearing loss (SNHL) of left ear with restricted hearing of right ear Menieres disease Surgical History S/P shoulder surgery S/P cataract surgery S/P skin neoplasm resection S/P cholecystectomy Family History Mother Brain tumor Father Stomach ulcer Brother Brain cancer Grandmother Hearing loss Aunt Hearing loss Denies family history of Ovarian cancer Prostate cancer Heart disease Myocardial infarction Breast cancer Colorectal cancer Cancer Hypertension Stroke Asthma Social History (Updated 02/26/23 @ 09:58 by Iris Suarez LPN) Smoking Status: Former smoker Tobacco Type: Cigarettes Age Started Using Tobacco: 20; Age Quit Using Tobacco: 42; packs per day: 3; Second Hand Exposure: No; Do You Dip or Chew Tobacco: No; Hx Alcohol Use: No Hx Substance Use: No Preferred Language: Czech Communication Ability: Effective Visual Impairment: No Limitations Hearing Ability: Use of Hearing Aid Manager Of Maintenance Required: No Beliefs That Will Affect Care: Cultural marital status: / Current Living Situation: Alone current occupational status: retired How many Children do You have: 3 Feels Safe at Home: Yes Childhood Exposure to Second-Hand Smoke: No Diet: other Diet Comment: No salt caffeine: Yes during the past year weight has: remained stable Dental Care, Regularly: Yes Physical Activity Frequency: Daily Seatbelt Use: always Sunscreen Use: Yes Assistive Devices: Hearing Aid - Bilateral Review of Systems Review of Systems: All systems reviewed & are unremarkable except as noted in Subjective Constitutional: as per Subjective / HPI Eyes: as per Subjective / HPI Ear, Nose, Mouth, Throat: as per Subjective / HPI Respiratory: as per Subjective / HPI Cardiovascular: as per Subjective / HPI Gastrointestinal: as per Subjective / HPI Musculoskeletal: as per Subjective / HPI Integumentary: as per Subjective / HPI Neurologic: as per Subjective / HPI Psychiatric: as per Subjective / HPI Endocrine: as per Subjective / HPI Hematologic / Lymphatic: as per Subjective / HPI Allergy / Immunological: as per Subjective / HPI Exam (Neuro) Physical Exam: HEENT: normocephalic Neuro: Mental: AOx4, fluent speech, normal comprehension, no apraxia, no L/R confusion, no neglect CN: PERRL, Full EOM, symmetric face, intact sensation t/o face, midline T/U/P, 5/5 SCM/traps. Motor: No abnormal movements, normal tone and bulk, 5/5 t/o bilaterally Sens: intact to touch b/l grossly except subjective numbness on rt leg below the knee (prior report suggesting chronic condition). Coord: intact grossly. DTR: 2+ sym b/l Gait: deferred. Impression: 82 yo female with acute rt hemiparesis and speech change and s/p TNK ase with normal exam currently. negative CTA/CT head/neck. pt doing very well and no new deficits. Pt's prior MS diagnosis has been modified and considered no longer having MS. Recommendations: 1. Standard stroke work up as planned an d post TNKase care. 2. antiplatelet therapy: after CT head ( after 24hrs from TNKase at 1230, if negative for bleed, ok to start on DAPT for 21 days). * DAPT (dual antiplatelet therapy): start for pts with ABCD2 score 4 or higher. Initial loading dose with ASA 325mg and Plavix 300mg (if pt has not been started), then ASA 81mg daily and Plavix 75mg daily. Continue DAPT for 21 days if found small vessel disease only or continue for 90 days if found to have intracranial large artery atherosclerosis. After that, can continue single antiplatelet therapy (either ASA or Plavix). 3. Images: MRI brain not needed as pt's implant is causing artifact and unable to get good study. since pt is doing well without deficit, ok without repeat CT as planned, TTE with bubble 4. Permissive Hypertension for next 24-4 8 hrs. Keep SBP goal range less than 200. Avoid hypotension. Do not stop beta-kj if on it. 5. If noted for large intracranial vesse l stenosis, slow reduction of BP and allowing permissive HTN next 5-7 days. 6. Long-term SBP goal less than 130. 7. Plenty of hydration including IV flui d if possible (use isotonic solution) next 1-2 days. Avoid hypovolemia and hypotension. 8. Initiate DVT prevention therapy. 9. Avoid hypoglycemia, serum glucose goa l during hospitalization: 140-180. 10. Long-term HgA1c goal less than 7. 11. Start statin if not on it and no abs olute contraindication, long-term LDL goal less than 70. 12. Head of bed up 30 degrees if possibl e. 13. Stroke education by nursing and appr opriate staff. 14. Telemetry monitoring. Consider senior living cardiac monitoring, i.e. MCOT (mobile cardiac outpatient telemetry) or ICM (insertable medical office coordinator, e.g. LINQ), if never had [facility] cardiac monitoring done previously. And if found to have atrial flutter or fibrillation, should consider anticoagulation therapy if no contraindication. 15. Fall precaution 16. Consult physical and occupational th erapy evaluation. If she is doing well after CT head done and negative, she can be transferred out of ICU to medical floor this afternoon. Chart reviewed I have spent more than 50% educating patient about potential diagnosis and neurological evaluation and coordinating care with patient's treatment team. Total time spent (including chart review and coordination of care): 60 min (this includes chart review). Results & Data Vital Signs (Past 12 Hours) Vital Signs Temp Pulse Pulse Resp BP Pulse Ox O2 Del Method 07/09/23 08:25 36.9 C 70 16 141/71 H 94 Room Air 07/09/23 08:03 Room Air 07/09/23 07:35 36.6 C 69 16 149/72 H 95 Room Air 07/09/23 07:24 66 07/09/23 06:35 36.8 C 66 16 159/74 H 95 Room Air 07/09/23 05:35 36.8 C 61 16 153/82 H 93 Room Air 07/09/23 04:35 36.7 C 86 16 149/90 H 94 Room Air 07/09/23 03:35 36.8 C 79 16 164/86 H 94 Room Air 07/09/23 02:35 36.7 C 64 16 162/76 H 94 Room Air 07/09/23 01:35 36.9 C 64 16 162/72 H 94 Room Air 07/09/23 00:35 36.7 C 65 16 170/77 H 95 Room Air 07/08/23 23:35 36.8 C 65 16 168/81 H 96 Room Air 07/08/23 22:35 36.7 C 59 L 16 166/73 H 97 Room Air 07/08/23 21:35 36.8 C 75 16 176/99 H 95 Room Air PG Care Time/CCT Total # of Minutes Spent Total Time Spent with Patient: Total time spent is greater than 50% in coordination of care (as documented) at patient's floor/unit and/or counseling patient: Coding Level of Care Code 68211 IN/OBS CONSULT LVL 4,60M Diagnoses Cerebrovascular accident (CVA), unspecified mechanism I63.9 CVA mechanism: unspecified (1) CVA (cerebral vascular accident) CVA mechanism: unspecified Qualified Code(s): I63.9 - Cerebral infarction, unspecified
--- NOTE | 2023-07-09 10:25 | Critical Care Progress Note ---
Date of Service July 09, 2023 Assessment & Plan (1) CVA (cerebral vascular accident): Plan: Continue frequent neurovascular checks maintaining blood pressure at goal of under 180 systolic and diastolic less than 105. Echo with bubble study ordered. MRI brain unable to be successfully completed due to cochlear implant Patient will need PT and OT evaluations. Noncontrast CT head ordered for later today to evaluate for evidence of bleed. Neurology consult appreciated. Avoid fever, maintain euglycemia and keep head of the bed elevated. Patient stable for downgrade out of ICU. Critical care services to sign off. Thank you for the consult. Admission and Anticipated Discharge Date Admission Date: July 08, 2023 Subjective No acute issues overnight. Patient without complaints. Review of Systems Review of Systems: All systems reviewed & are unremarkable except as noted in HPI & below Physical Exam Physical Exam: Constitutional: Patient appears to be of their stated age. Patient is in no apparent distress. Patient is well-developed. Eyes: Pupils are equal round and reactive to light. Conjunctivae are normal. Anicteric sclera. Ears nose, mouth and throat: Mallampati class 2. Normal posterior oropharynx. Uvula is midline. Left cochlear implant. Neck: Trachea is midline. Visual inspection is normal. Respiratory: Clear to auscultation bilaterally. No use of accessory muscles. No significant clubbing noted. Cardiovascular: Regular rate and rhythm. No murmurs. No edema. Gastrointestinal: Normal bowel sounds, soft, nontender and nondistended. No hepatosplenomegaly noted. Musculoskeletal: No cyanosis. Patient is able to move all extremities. Strength is 5 out of 5 in the upper and lower extremities. Skin: No rashes, warm dry and intact. Neurologic: No obvious focal neurological deficits seen. Psychiatric: Alert and oriented x3 with a euthymic affect. Results & Data Results & Data Vital Signs (Past 12 Hours) Vital Signs Temp Pulse Pulse Resp BP Pulse Ox O2 Del Method 07/09/23 09:25 37 C 72 16 147/90 H 93 Room Air 07/09/23 08:25 36.9 C 70 16 141/71 H 94 Room Air 07/09/23 08:03 Room Air 07/09/23 07:35 36.6 C 69 16 149/72 H 95 Room Air 07/09/23 07:24 66 07/09/23 06:35 36.8 C 66 16 159/74 H 95 Room Air 07/09/23 05:35 36.8 C 61 16 153/82 H 93 Room Air 07/09/23 04:35 36.7 C 86 16 149/90 H 94 Room Air 07/09/23 03:35 36.8 C 79 16 164/86 H 94 Room Air 07/09/23 02:35 36.7 C 64 16 162/76 H 94 Room Air 07/09/23 01:35 36.9 C 64 16 162/72 H 94 Room Air 07/09/23 00:35 36.7 C 65 16 170/77 H 95 Room Air 07/08/23 23:35 36.8 C 65 16 168/81 H 96 Room Air 07/08/23 22:35 36.7 C 59 L 16 166/73 H 97 Room Air Coding Level of Care Code 59989 SUB INP/OBS CARE 05/01MIN Diagnoses Cerebrovascular accident (CVA), unspecified mechanism I63.9 CVA mechanism: unspecified (1) CVA (cerebral vascular accident) CVA mechanism: unspecified Qualified Code(s): I63.9 - Cerebral infarction, unspecified
--- NOTE | 2023-07-09 14:00 | XCELERA ---
[id number]
--- NOTE | 2023-07-09 15:12 | CT Scan Report ---
CT head/brain wo con CLINICAL HISTORY: Post TPA/TNK 24 hour Technique: Contiguous axial CT images of the head were acquired from the base of the skull to the krish kimberly without intravenous contrast administration. Images were viewed in brain, subdural and bone windo ws. Automated dose lowering techniques and/or adjustment according to patient size were utilized for this exam. Comparison: Comparison is made to CT head 07/08/2023 Findings: The ventricles, basal cisterns, and cerebral sulci are normal. There is no acute intracranial hemorrh age or evidence of acute territorial infarction. Neither mass effect, shift of the midline structures , nor abnormal extra-axial fluid collections are shown. Exam is limited by streak artifact from post surgical changes. Imaged portions of the paranasal sinuses and mastoid air cells are clear. The orbits appear normal. There are no acute fractures of the calvaria or scalp swelling. Impression: No acute intracranial hemorrhage, no evidence of acute territorial infarction or other acute intracra nial disease process. ACT 112: Negative or not required by law. Electronically signed by: Hussein Toney M.D. 07/09/2023 3:11 PM
[2023-07-10 05:16] LABS: Basophils # (auto) 0.03 K/uL (0.00-0.20); Basophils % (auto) 0.8 %; Eosinophils # (auto) 0.28 K/uL (0.00-0.50); Eosinophils % (auto) 7.1 %; Hemoglobin 11.9 g/dl (12.0-16.0); Immature Granulocytes # (auto) 0.01 K/uL (0.01-0.20); Immature Granulocytes % (auto) 0.3 %; Lymphocytes % (auto) 27.8 %; Mean Corpuscular Hemoglobin 32.2 pg (25.0-34.0); Mean Corpuscular Hgb Conc 33.1 g/dL (32.0-36.0); Mean Corpuscular Volume 97.6 fL (80.0-100.0); Monocytes # (auto) 0.43 K/uL (0.11-0.59); Monocytes % (auto) 10.9 %; Neutrophils # (auto) 2.11 K/uL (1.40-6.50); Neutrophils % (auto) 53.1 %; Platelet Count 164 K/uL (130-400); RDW Coefficient of Variation 13.8 % (11.5-14.5); RDW Standard Deviation 49.4 fL (36.4-46.3); Red Blood Count 3.69 M/uL (4.20-5.40); White Blood Count 3.96 K/ul (4.8-10.8)
[2023-07-10 05:20] LABS: Albumin Globulin Ratio 1.5 (0.9-2); Albumin Level 3.5 gm/dl (3.4-5.0); Bilirubin,Total 0.7 mg/dl (0.2-1.0); Calcium 8.7 mg/dl (8.6-10.3); Creatinine Clr Calc Pharmacy 43.1 ml/min; Est GFR (Non-African American) 60.4 ml/min; Globulin 2.4 gm/dl (2.5-4.0); Potassium 3.9 mmol/L (3.5-5.1); Total Protein 5.9 gm/dl (6.0-8.3)
--- NOTE | 2023-07-10 07:44 | Electrocardiogram Report ---
Test Reason : Blood Pressure : / mmHG Vent. Rate : 092 BPM Atrial Rate : 092 BPM P-R Int : 174 ms QRS Dur : 082 ms QT Int : 340 ms P-R-T Axes : 057 001 053 degrees QTc Int : 420 ms Normal sinus rhythm Septal infarct (cited on or before 21-OCT-2022) Abnormal ECG When compared with ECG of 21-OCT-2022 09:09, No significant change was found Confirmed by Juan C Wesley ([id number]) on 07/10/2023 7:44:22 AM Referred By: Confirmed By:Juan C Wesley
[2023-07-10] MEDS: ASPIRIN 81 MG ECTAB PO SCH (09:05)
[2023-07-10] MEDS: ENOXAPARIN INJ 40 MG/0.4 ML SYR SQ SCH (09:05)
--- NOTE | 2023-07-10 09:57 | Neurology Progress Note ---
Date of Service July 10, 2023 Assessment & Plan (1) CVA (cerebral vascular accident): Admission and Anticipated Discharge Date Admission Date: July 08, 2023 Subjective pt feeling well. no new issues. Results & Data Vital Signs (Past 12 Hours) Vital Signs Temp Pulse Resp BP Pulse Ox O2 Del Method 07/10/23 08:00 37 C 07/10/23 08:00 Room Air 07/10/23 08:00 Room Air 07/10/23 07:48 65 07/10/23 07:24 86 20 96 Room Air 07/10/23 07:24 156/121 H 07/10/23 07:01 164/90 H 07/10/23 07:01 164/90 H 07/10/23 07:01 78 19 96 07/10/23 07:00 73 16 96 07/10/23 06:00 75 15 95 07/10/23 06:00 147/74 H 07/10/23 05:00 69 14 96 07/10/23 05:00 159/83 H 07/10/23 04:00 149/81 H 07/10/23 04:00 66 18 93 07/10/23 04:00 36.9 C 07/10/23 03:00 68 18 92 07/10/23 03:00 135/75 07/10/23 02:00 151/87 H 07/10/23 02:00 75 21 92 07/10/23 01:00 72 23 93 07/10/23 01:00 162/83 H 07/10/23 00:00 144/98 H 07/10/23 00:00 80 14 93 07/10/23 00:00 36.8 C 07/10/23 00:00 90 07/09/23 23:00 136/78 07/09/23 23:00 85 23 93 07/09/23 22:46 36.9 C 07/09/23 22:10 88 19 92 07/09/23 22:01 87 18 93 07/09/23 22:01 149/102 H 07/09/23 22:00 89 19 91 Exam (Neuro) Physical Exam: Neuro: Mental: AOx4, fluent speech, normal comprehension, no apraxia, no L/R confusion, no neglect CN: , Full EOM, symmetric face, Motor: No abnormal movements, 5/5 t/o bilaterally Coord: intact grossly. Gait: intact. Impression: 82 yo female with acute rt hemiparesis and speech change and s/p TNKase with normal exam currently. negative CTA/CT head/neck. pt doing very well and no new deficits. Pt's prior MS diagnosis has been modified and considered no longer having MS. No suggestion of bleed. Recommendations: continue DAPT for 21 days. LDL goal less than 70 SBP goal less than 140. no new recommendations. please call again if new question. Chart reviewed I have spent more than 50% educating patient about potential diagnosis and neurological evaluation and coordinating care with patient's treatment team. Total time spent (including chart review and coordination of care): 35min (this includes chart review). PG Care Time/CCT Total # of Minutes Spent Total Time Spent with Patient: Total time spent is greater than 50% in coordination of care (as documented) at patient's floor/unit and/or counseling patient: Coding Level of Care Code 46342 SUB INP/OBS CARE 2/35MIN Diagnoses Cerebrovascular accident (CVA), unspecified mechanism I63.9 CVA mechanism: unspecified (1) CVA (cerebral vascular accident) CVA mechanism: unspecified Qualified Code(s): I63.9 - Cerebral infarction, unspecified
--- NOTE | 2023-07-10 14:37 | Pharmacy Report ---
- Date of Service July 10, 2023 - Pharmacy CVA/TIA Medication Review Medications to Prevent Stroke handout has been added to the patients discharge packet. Antiplatelet(s) * Aspirin 81mg daily + Clopidogrel 75mg daily x 21 days, then can continue single agent antiplatelet therapy (either ASA or Plavix) - per Neuro consult recs Cholesterol * High intensity statin: atorvastatin 40 mg daily DVT Prophylaxis * Enoxaparin SQ 40mg Q AM as well as SCDs to knee Therapeutic Anticoagulation * No history of Afib/Aflutter noted Type 2 Diabetes * Patient does not have T2DM
[2023-07-10] MEDS: ASPIRIN 81 MG ECTAB PO ONE (15:01)
[2023-07-10] MEDS: CLOPIDOGREL BISULFATE 300 MG TAB PO ONE (15:05)
--- NOTE | 2023-07-10 22:33 | Hospitalist Progress Note ---
Date of Service July 10, 2023 Assessment & Plan (1) CVA (cerebral vascular accident): Plan: Suspected CVA, sudden onset right lower extremity weakness/paresthesia. Onset of right lower extremity acute weakness and numbness 945hrs 07/08/23. s/p TNKase at 1234. NIHSS 2/3 in ER. Symptoms nearly completely resolved on assessment post TNKase. - CTA-H/N, CT-H naf on admit Received labetalol 5 mg x 2 for hypertension pre-TNKase with good control Message left with Dr. Everton Black in [facility] to determine if her cochlear implant placed November 2022 is MRI compatible. MRI deferred pending clarification 24-hour CT ordered Post TNKase protocol,limb restriction, no aspirin x 24 hours - labetelol 10mg IV Q15M on-call for SBP greater than 180 or diastolic blood pressure greater than 105. Max dose 300mg, hold for bradycardia Echo with bubble study completed. Neuro consulted Patient is now clear for discharge. Awaiting placement for rehab, (2) Menieres disease: Plan: S/p L ear cochlear implant by Dr. Everton Black in [place] [phone] (3) Multiple sclerosis: Plan: Remote history of this with stable MRI findings last MRI several years ago. 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 Physical Exam Physical Exam: Awake and alert she is hard of hearing but can understand if you are speaking well looking at her Card exam is regular lungs are clear No defined significant muscular deficit on neurological testing Results & Data Results & Data Vital Signs (Past 12 Hours) Vital Signs Temp Pulse Resp BP Pulse Ox Pulse Ox O2 Del Method 07/10/23 21:00 162/82 H 07/10/23 21:00 67 18 97 07/10/23 20:00 168/99 H 07/10/23 20:00 75 20 95 07/10/23 14:00 95 07/10/23 12:00 115/78 07/10/23 12:00 78 93 07/10/23 12:00 36.6 C 07/10/23 11:01 75 95 Room Air 07/10/23 11:01 155/127 H 07/10/23 11:00 76 97 07/10/23 10:35 140/74 07/10/23 10:35 83 99 O2 Del Method 07/10/23 21:00 07/10/23 21:00 07/10/23 20:00 07/10/23 20:00 07/10/23 14:00 Room Air 07/10/23 12:00 07/10/23 12:00 07/10/23 12:00 07/10/23 11:01 07/10/23 11:01 07/10/23 11:00 07/10/23 10:35 07/10/23 10:35 PG Care Time/CCT Total # of Minutes Spent Total Time Spent with Patient: Total time spent is greater than 50% in coordination of care (as documented) at patient's floor/unit and/or counseling patient: Coding Level of Care Code 44790 SUB INP/OBS CARE 2/35MIN Diagnoses Cerebrovascular accident (CVA), unspecified mechanism I63.9 CVA mechanism: unspecified Menieres disease H81.09 Multiple sclerosis G35 Hypertension I10 Prediabetes R73.03 (1) CVA (cerebral vascular accident) CVA mechanism: unspecified Qualified Code(s): I63.9 - Cerebral infarction, unspecified
[2023-07-11 05:32] LABS: Basophils # (auto) 0.02 K/uL (0.00-0.20); Basophils % (auto) 0.5 %; Eosinophils # (auto) 0.29 K/uL (0.00-0.50); Eosinophils % (auto) 7.6 %; Hematocrit (blood only) 33.8 % (37.0-47.0); Hemoglobin 11.4 g/dl (12.0-16.0); Immature Granulocytes # (auto) 0.01 K/uL (0.01-0.20); Immature Granulocytes % (auto) 0.3 %; Lymphocytes # (auto) 1.03 K/uL (1.20-3.40); Lymphocytes % (auto) 26.8 %; Mean Corpuscular Hemoglobin 32.9 pg (25.0-34.0); Mean Corpuscular Hgb Conc 33.7 g/dL (32.0-36.0); Mean Corpuscular Volume 97.4 fL (80.0-100.0); Mean Platelet Volume 10.3 fL (9.4-12.4); Monocytes # (auto) 0.48 K/uL (0.11-0.59); Monocytes % (auto) 12.5 %; Neutrophils # (auto) 2.01 K/uL (1.40-6.50); Neutrophils % (auto) 52.3 %; Platelet Count 158 K/uL (130-400); RDW Coefficient of Variation 13.8 % (11.5-14.5); RDW Standard Deviation 48.9 fL (36.4-46.3); Red Blood Count 3.47 M/uL (4.20-5.40); White Blood Count 3.84 K/ul (4.8-10.8)
[2023-07-11 05:53] LABS: Albumin Level 3.4 gm/dl (3.4-5.0); Bilirubin,Total 0.5 mg/dl (0.2-1.0); Calcium 8.5 mg/dl (8.6-10.3); Potassium 4.1 mmol/L (3.5-5.1)
[2023-07-11 05:59] LABS: Albumin Globulin Ratio 1.5 (0.9-2); BUN Creatinine Ratio 20.9 (10-20); Creatinine Clr Calc Pharmacy 49.8 ml/min; Est GFR (African American) 73.9 ml/min; Est GFR (Non-African American) 63.8 ml/min; Globulin 2.2 gm/dl (2.5-4.0); Total Protein 5.6 gm/dl (6.0-8.3)
[2023-07-11] MEDS: CLOPIDOGREL BISULFATE 75 MG TAB PO SCH (10:46)
--- NOTE | 2023-07-11 16:17 | Discharge Summary ---
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 She was evaluated as a stroke alert and received TNKase at 1234. Prior to TNKase 2 doses of labetalol were given for blood pressure peaking at 199/119. Rain seen at the bedside. She reports that she is not had any history of strokes or TIAs. No history of heart disease. No a flutter. No chest pain or chest pressure. She was in her usual state of health yesterday and this morning with no recent cold-like symptoms, flulike symptoms or acute illness when she suddenly developed right lower extremity weakness and numbness. She attempted to bear weight and realize she could not stand on that leg due to weakness and felt her balance was listing off to the right side. She presented to the ER by EMS and reports she thinks her symptoms were starting to improve a little bit but was still very weak. On initial assessment she had right lower extremity drift and decreased sensation compared to the left. right arm was relatively normal and she did not have any expressive or receptive aphasia or dysarthria. She thinks that she had some preceding lightheadedness and dizziness just before her weakness. No syncope or presyncope. She received TNKase at 1234, seen at the bedside approximately 1245. At time of assessment she feels her right leg continues to be qualitatively numb compared to the left but she can sense soft touch to the right lower extremity. Patient moves in hip flexes and is surprised as she notes her right lower extremity strength is suddenly back to. She denies acute vision change, although macular degeneration with chronic acuity loss, and denies headache. Medical History: Reviewed Medications: Reviewed Surgical History: Reviewed Family history: Reviewed Allergies: Reviewed Social History: Former tobacco use in remission since 1982, former alcohol use in remission since 1969 Code Status: DNR/DNI, discussed with patient and daughter who is at bedside at time of visit Principal Diagnosis CVA Discharge Exam Awake and alert she is hard of hearing but can understand if you are speaking well looking at her Card exam is regular lungs are clear No defined significant muscular deficit on neurological testing Discharge Data Allergies Allergy/AdvReac Type Severity Reaction Status Date / Time bee venom protein (honey bee) Allergy Verified 07/07/23 14:41 No Known Drug Allergies Allergy Verified 07/07/23 14:41 Consultations 07/08/23 13:00 ED Decision to Admit Stat 07/08/23 13:18 Consult Neurology Routine 07/08/23 14:30 Consult Manager Asset Routine Ordered Studies 07/08/23 11:08 CT angio head w con Stat CT angio neck with con Stat CT head/brain wo con Stat 07/09/23 12:26 CT head/brain wo con Routine Hospital Course (1) CVA (cerebral vascular accident): Suspected CVA, sudden onset right lower extremity weakness/paresthesia. Onset of right lower extremity acute weakness and numbness 945hrs 07/08/23. s/p TNKase at 1234. NIHSS 2/3 in ER. Symptoms nearly completely resolved on assessment post TNKase. - CTA-H/N, CT-H naf on admit Received labetalol 5 mg x 2 for hypertension pre-TNKase with good control Message left with Dr. Everton Black in [place] [facility] to determine if her cochlear implant placed November 2022 is MRI compatible. MRI deferred pending clarification 24-hour CT ordered Post TNKase protocol,limb restriction, no aspirin x 24 hours - labetelol 10mg IV Q15M on-call for SBP greater than 180 or diastolic blood pressure greater than 105. Max dose 300mg, hold for bradycardia Echo with bubble study completed. Neuro consulted Patient is now clear for discharge. Patient will be going to SNF (2) Menieres disease: S/p L ear cochlear implant by Dr. Everton Black in [place] [phone] (3) Multiple sclerosis: Remote history of this with stable MRI findings last MRI several years ago. Patient denies recurrent focal neurodeficits and is no longer on any medications for this DDx for acute right lower extremity weakness does include MS flare, although abrupt onset with near complete resolution following TNKase aspconsistent with CVA (4) Hypertension: Post TNKase protocol - BUS [employer] pt reports blood pressure is normally well-controlled 120s at home with salt restriction (5) Prediabetes: Diet controlled, hemoglobin A1c is 5.7 no treatment required at this time besides dietary restriction Total Time Total Time Spent Total Time Spent (In Minutes): 32 Discharge Plan Discharge Items Patient Disposition: Transfer Inpatient Rehab Fac Reason For Visit: CVA POST TNKASE Discharge Diagnosis: CVA post TNKase Activity: Resume your previous activity Non-emergency contact: Primary Care Provider Call non-emergency contact if: you have any medication questions Follow-up/Referrals: Darryl Hernandez, [Primary Care Provider] - Diet: Heart Healthy and Low Sodium (2gm) Addtl Attending Provider Instructions: Risk Factors for Stroke: You can reduce your chances of stroke by working with your medical provider to adopt a healthy lifestyle. Some specific ways to lower your chance of stroke are: * If you are a smoker, now is the time to stop smoking cigarettes * If you are diabetic, improve the control of your blood sugars * Avoid excessive amounts of alcohol * Control high blood pressure * Lose weight if you are overweight * Be sure to lead an active lifestyle * Eat a healthy diet low in salt, cholesterol and fat You should know about other risk factors for stroke that you are unable to control. These include: * Age 55 years or older * Male gender * Certain racial groups: , or / * Family History of Stroke, Mini stroke or Heart Attack * Sickle Cell Disease Follow Up: It is important for you to keep your follow up appointments with your medical provider. Who to Call and When: Medical Emergencies: Call 911 immediately if you experience any of the following warning signs and symptoms of Stroke: * Sudden numbness or weakness of the face, arm or leg, especially on one side of the body * Sudden confusion, trouble speaking or understanding * Sudden trouble seeing in one or both eyes * Sudden trouble walking, dizziness, loss of balance or coordination * Sudden severe headache with no cause Do not delay calling 911 if you experience any warning signs or symptoms of a stroke. Delay in seeking medical attention may affect what treatments can be given to you. . Pending Studies at Discharge: No Stand-Alone Forms: My [employer], Medications to Prevent Stroke Skilled Items Patient informed of condition?: Yes DNR: No Discharge Level of Care: Acute rehab Communicable Disease: No Discharge Prognosis: Stable Lines: None Urinary Catheter: No Medications and DC Order Prescriptions: New atorvastatin 40 mg Tablet 40 mg PO QAM Qty: 30 0RF clopidogrel 75 mg Tablet 75 mg PO DAILY Qty: 30 0RF aspirin 81 mg Tablet,Delayed Release (Dr/Ec) 81 mg PO QAM Qty: 30 0RF Continued Restasis 0.05 % dropperette 1 drops OP Q12H multivitamin tablet 1 tab PO DAILY vitamin B complex [B Complex 1] tablet 1 tab PO DAILY PreserVision AREDS-2 250-90-40-1 mg capsule 1 tab PO BID meclizine 25 mg tablet 25 mg PO DAILY PRN (Reason: dizziness) Qty: 10 11RF Discontinued turmeric root extract 500 mg capsule 500 mg PO DAILY krill oil 500 mg capsule See Rx Instructions .ROUTE .COMPLEX Rx Instructions: as directed Discharge Orders: Discharge Order (Routine); Ordered 07/11/23 Ordered By: Alfonso Mejía Admission Data Admit Date/Time: 07/08/23 13:02 Attending Provider: Alfonso Mejía Admit Provider: Deyvi Coleman Primary Care Provider: Darryl Hernandez Other Providers: [facility]; [place]; Deyvi Coleman; Eleuterio Powell; Malvin Mckinney Other Interventions: Discharge Summary Assessment (RN) Last Done: 07/11/23 17:16 Coding Level of Care Code 45838 INP/OBS DISCH >30 MIN Diagnoses Cerebrovascular accident (CVA), unspecified mechanism I63.9 CVA mechanism: unspecified Menieres disease H81.09 Multiple sclerosis G35 Hypertension I10 Prediabetes R73.03
== END 2023-07-11 17:30 | DRG 62 ==
LOC: ED 11:12 → 1E 13:02 → SUATTDRO 13:02 → 1E 14:46 → 2S 07-10 22:59